=== PATIENT | male | born 1945 | race Caucasian/White ===

== ENCOUNTER 2021-10-28 06:28 | Day surgery (SDC) | payer MEDICARE, OTHER ==
[2021-10-28] MEDS ORDERED: Midazolam 1 MG/ML 2 ML SDV ONE (06:50)
[2021-10-28] MEDS ORDERED: fentaNYL 100 MCG/2 ML SDV ONE (06:50)
[2021-10-28] MEDS ORDERED: Propofol 200 MG/20 ML SDV ONE (06:50)
[2021-10-28] MEDS ORDERED: Lactated Ringers 1,000 ML IV SCH (07:15)
[2021-10-28] MEDS ORDERED: Dextrose 5%-Lactated Ringers 1,000 ML IV SCH (07:30)
== END 2021-10-28 09:53 | disposition home or self-care (01) ==
LOC: JP.SDS 06:28
PROVIDERS: ATTEND Hospitalist
DX: Z12.11 Encounter for screening for malignant neoplasm of colon (principal); K63.5 Polyp of colon; I10 Essential (primary) hypertension; C61 Malignant neoplasm of prostate; F17.200 Nicotine dependence, unspecified, uncomplicated; Z79.810 Long term (current) use of selective estrogen receptor modulators (SERMs); Z79.83 Long term (current) use of bisphosphonates; Z79.899 Other long term (current) drug therapy; Z79.891 Long term (current) use of opiate analgesic
CPT/HCPCS: 45380; J2250; J2704; J3010; J7120

== ENCOUNTER 2022-12-11 09:56 | Emergency (ER) | payer MEDICARE, OTHER ==
[2022-12-11] MEDS ORDERED: Bacitracin Oint 1 GM U/D Packet TOP ONE (11:58)
[2022-12-11] MEDS ORDERED: Acetaminophen/HYDROcodone 325-5 MG Tab PO ONE (12:12)
[2022-12-11 13:07] LABS: BASOPHILS ABSOLUTE AUTO 0.04 K/uL (0.00-0.10); BASOPHILS PERCENT AUTO 0.4 % (0.1-1.3); EOSINOPHILS ABSOLUTE AUTO 0.05 K/uL (0.00-0.40); EOSINOPHILS PERCENT AUTO 0.5 % (0.0-5.4); HEMATOCRIT 42.3 % (38.4-49.7); HEMOGLOBIN 15.3 g/dL (12.9-16.9); IMMATURE GRAN ABSOLUTE AUTO 0.06 K/uL (0.00-0.23); IMMATURE GRAN PERCENT AUTO 0.6 % (0.0-0.7); LYMPHOCYTES ABSOLUTE AUTO 1.36 K/uL (0.8-3.3); LYMPHOCYTES PERCENT AUTO 12.5 % (11.4-47.7); MEAN CORPUSCULAR HEMOGLOBIN 32.3 pg (31.6-35.5); MEAN CORPUSCULAR HGB CONC 36.2 g/dL (31.6-35.5); MEAN CORPUSCULAR VOLUME 89.2 fL (81.4-99.0); MONOCYTES ABSOLUTE AUTO 0.97 K/uL (0.20-0.90); MONOCYTES PERCENT AUTO 8.9 % (3.3-12.6); NEUTROPHILS ABSOLUTE AUTO 8.36 K/uL (1.0-7.6); NEUTROPHILS PERCENT AUTO 77.1 % (40.0-78.1); PLATELET COUNT,PLT 233 K/uL (130-375); RED BLOOD CELL COUNT 4.74 M/uL (4.14-5.76); WHITE BLOOD CELL COUNT,WBC 10.8 K/uL (3.2-11.0)
[2022-12-11 13:22] LABS: CALCIUM 8.3 mg/dL (8.5-10.1); CREATININE 1.1 mg/dL (0.8-1.3); EST CRCL DRUG DOSING (CG) 55.27 mL/min; POTASSIUM,K 4.2 mmol/L (3.6-5.2)
[2022-12-11 13:32] LABS: ANION GAP 12.2 mmol/L (5.0-14.0)
== END 2022-12-11 14:26 | disposition home or self-care (01) ==
LOC: JP.ED 09:56
DX: S42.402A Unspecified fracture of lower end of left humerus, initial encounter for closed fracture (principal); S52.002A Unspecified fracture of upper end of left ulna, initial encounter for closed fracture; E87.1 Hypo-osmolality and hyponatremia; I10 Essential (primary) hypertension; E66.9 Obesity, unspecified; F17.210 Nicotine dependence, cigarettes, uncomplicated; W19.XXXA Unspecified fall, initial encounter
CPT/HCPCS: 36415; 73080; 80048; 85025; 93005; 99284; A9270; U0002; 93010

== ENCOUNTER 2022-12-12 08:43 | Day surgery (SDC) | payer MEDICARE, OTHER ==
[2022-12-12] MEDS ORDERED: Nozin Nasal Sanitizer NASBOTH ONE (09:30)
[2022-12-12] MEDS ORDERED: Lactated Ringers 1,000 ML IV SCH (09:30)
[2022-12-12] MEDS ORDERED: ceFAZolin 2 GM in Premix Bag 1 BAG IV ONE (10:00)
[2022-12-12] MEDS ORDERED: Bupivacaine 0.5% 30 ML SDV ONE (11:08)
[2022-12-12] MEDS ORDERED: Ondansetron 4 MG/2 ML SDV ONE (11:50)
[2022-12-12] MEDS ORDERED: Neostigmine Methylsulfate 1 MG/ML 5 ML Syringe ONE ×2 (11:50→12:44)
[2022-12-12] MEDS ORDERED: Dexamethasone 4 MG/ML SDV ONE (11:50)
[2022-12-12] MEDS ORDERED: Succinylcholine 200 MG/10 ML MDV ONE (11:50)
[2022-12-12] MEDS ORDERED: Propofol 200 MG/20 ML SDV ONE (11:50)
[2022-12-12] MEDS ORDERED: Rocuronium 50 MG/5 ML Vial ONE (11:50)
[2022-12-12] MEDS ORDERED: Glycopyrrolate 0.2 MG/ML 5 ML MDV ONE ×2 (11:50→12:44)
[2022-12-12] MEDS ORDERED: fentaNYL 250 MCG/5 ML SDV ONE (11:50)
[2022-12-12] MEDS ORDERED: Sodium Chloride 0.9% 10 ML ONE (12:49)
[2022-12-12] MEDS ORDERED: ePHEDrine 50 MG/ML SDV ONE (12:49)
[2022-12-12] MEDS ORDERED: Acetaminophen/oxyCODONE 325-5 MG Tab PO PRN (14:49)
== END 2022-12-12 16:34 | disposition home or self-care (01) ==
LOC: JP.SDS 08:43
PROVIDERS: ATTEND Specialist
DX: S52.022A Displaced fracture of olecranon process without intraarticular extension of left ulna, initial encounter for closed fracture (principal); W19.XXXA Unspecified fall, initial encounter; I10 Essential (primary) hypertension; J43.9 Emphysema, unspecified; E78.5 Hyperlipidemia, unspecified; R73.03 Prediabetes; F17.200 Nicotine dependence, unspecified, uncomplicated
CPT/HCPCS: 24685; A9270; C1713; J0330; J0690; J1100; J2405; J2704; J2710; J3010; J3490; J7120